=== PATIENT | male | born 1985 | race Caucasian/White ===

== ENCOUNTER → 2017-02-19 | Outpatient (CLI) | payer BC, OTHER ==
[~2017-02-19] MED LIST: ACHD5005 PO; AMOX500C2 PO; CYCL10TA9 PO; DOXY100C2 PO; HYDR-3812 PO; HYDR-757 PO; HYDR1TAB71 PO; IBP800T PO; IBUP-15 PO; NAPR-243 PO; NICOTINE PATCH1 EAC3 TD; ONDAN4ODT SL; PRD20T PO; SULF1TAB38 PO; TRAM50TA2 PO
--- NOTE | 2017-02-19 11:35 | Diagnostic Imaging Report ---
PROCEDURE: MRI left joint lower extremity without contrast. TECHNIQUE: Multiplanar, multisequence non contrast-enhanced MRI of the left lower extremity was accomplished. INDICATION: Left knee pain popping and swelling. Pain is mostly lateral to the patella. FINDINGS: The anterior cruciate and posterior cruciate ligaments are intact. Medial collateral ligaments intact. The biceps femoris, fibular collateral and iliotibial band are intact. Both the medial and lateral meniscus are normal in signal intensity morphology. Quadriceps tendons and patellar tendons are intact. There is a very minimal knee joint effusion. The articular cartilage is well maintained in all three knee joint compartments. There are no areas of underlying marrow edema. There are no focal soft tissue abnormalities. IMPRESSION: No significant internal derangement of the the knee. There may be very minimal knee joint effusion. Dictated by: Dictated on workstation # [id number]
== END ==
LOC: RAD 10:18
PROVIDERS: ATTEND Nurse Practitioner Community Health
DX: M25.562 Pain in left knee (principal); R22.42 Localized swelling, mass and lump, left lower limb
CPT/HCPCS: 73721

== ENCOUNTER 2017-05-14 09:30 | Emergency (ER) | payer OTHER ==
[~2017-05-14] VITALS: Ht 167.6 cm; Wt 97.5 kg
[2017-05-14 11:01] LABS: BASOPHILS # (AUTO) 0.1 10^3/uL (0.0-0.1); BASOPHILS % (AUTO) 1 % (0-10); EOSINOPHILS # (AUTO) 0.3 10^3/uL (0.0-0.3); EOSINOPHILS % (AUTO) 2 % (0-10); LYMPHOCYTES % (AUTO) 25 % (12-44); MEAN CORPUSCULAR HEMOGLOBIN 32 PG (25-34); MEAN CORPUSCULAR HGB CONC 35 G/DL (32-36); MEAN CORPUSCULAR VOLUME 93 FL (80-99); MEAN PLATELET VOLUME 10.6 FL (7.4-10.4); MONOCYTES # (AUTO) 1.9 X 10^3 (0.0-1.0); MONOCYTES % (AUTO) 10 % (0-12); NEUTROPHILS # (AUTO) 12.5 X 10^3 (1.8-7.8); NEUTROPHILS % (AUTO) 63 % (42-75); PLATELET COUNT 335 10^3/uL (130-400); RED BLOOD COUNT 4.38 10^6/uL (4.35-5.85); RED CELL DISTRIBUTION WIDTH 14.3 % (10.0-14.5); WHITE BLOOD COUNT 19.8 10^3/uL (4.3-11.0)
[2017-05-14 11:15] LABS: ALANINE AMINOTRANSFERASE 30 U/L (0-55); ALBUMIN 3.8 GM/DL (3.2-4.5); ANION GAP 11 MMOL/L (5-14); ASPARTATE AMINO TRANSFERASE 12 U/L (5-34); BILIRUBIN,TOTAL 0.2 MG/DL (0.1-1.0); BLOOD UREA NITROGEN 21 MG/DL (7-18); BUN/CREATININE RATIO 24; CALCIUM 9.2 MG/DL (8.5-10.1); CARBON DIOXIDE 23 MMOL/L (21-32); CHLORIDE 108 MMOL/L (98-107); CREATININE SERUM 0.89 MG/DL (0.60-1.30); GFR ESTIMATED > 60; GLUCOSE 84 MG/DL (70-105); LIPASE 61 U/L (8-78); POTASSIUM 4.2 MMOL/L (3.6-5.0); SODIUM 142 MMOL/L (135-145); TOTAL PROTEIN 6.4 GM/DL (6.4-8.2)
[2017-05-14 11:16] LABS: BILIRUBIN,URINE NEGATIVE (NEGATIVE); KETONES,URINE NEGATIVE (NEGATIVE); LEUKOCYTE ESTERASE ,URINE NEGATIVE (NEGATIVE); NITRITE,URINE NEGATIVE (NEGATIVE); PH,URINE 5 (5-9); PROTEIN,URINE NEGATIVE (NEGATIVE); UROBILINOGEN,URINE NORMAL (NORMAL)
[2017-05-14] MEDS ORDERED: KETOROLAC 30 MG/ML VIAL IVP ONE (11:30)
[2017-05-14 11:41] LABS: SQUAMOUS EPITHELIAL CELL,UR RARE /HPF
--- NOTE | 2017-05-14 11:51 | ED Abdominal Pain ---
General Chief Complaint: Chest Wall/Rib Pain Stated Complaint: RIGHT RIB PAIN Nursing Triage Note: PT CO OF R RIB PAIN FOR APPROX 1 MONTH. UNKNOWN CAUSE Sepsis Screen: No Definite Risk Source of Information: Patient Exam Limitations: No Limitations History of Present Illness Time Seen By Provider: 10:05 Initial Comments This 31-year-old young man presents to the emergency room with complaints of pain under the right costal margin. It has been present intermittently for months. It initially was present about 2 days per week but has become more frequent since then. He occasionally alternates between diarrhea and constipation. Pain tends to be more prevalent in the morning. He sometimes has pain with deep breathing and movement. He has nausea without vomiting. He believes he has been febrile at home but denies any measured temperatures over 100. He previously was taking hydrocodone for chronic musculoskeletal pain but has been off of it for about a month. He last ate tater tots and had a soda around 07:30. He denies any drug or alcohol use. Allergies and Home Medications Allergies Coded Allergies: No Known Drug Allergies (Unverified , 04/14/10) Home Medications Doxycycline Hyclate 100 Mg Tablet.dr, 100 MG PO BID, #60 Prescribed by: PALAK LOPEZ on 05/14/17 1430 Hydrocodone/Acetaminophen 1 Each Tablet, 1 EACH PO Q6H PRN for PAIN, #15 Prescribed by: PALAK LOPEZ on 05/14/17 1431 Review of Systems Constitutional: see HPI EENTM: No Symptoms Reported Respiratory: No Symptoms Reported Cardiovascular: No Symptoms Reported Gastrointestinal: See HPI Genitourinary: No Symptoms Reported Musculoskeletal: no symptoms reported Skin: no symptoms reported Psychiatric/Neurological: No Symptoms Reported Endocrine: No Symptoms Reported Past Jbwsjnv-Svbbmm-Riwqhg Hx Patient Social History Alcohol Use: Denies Use Recreational Drug Use: No Smoking Status: Never a Smoker Recent Foreign Travel: No Contact w/Someone Who Travel: No Recent Infectious Disease Expo: No Recent Hopitalizations: No (concussion when 14 y/o) Physical Abuse: No Sexual Abuse: No Immunizations Up To Date Tetanus Booster (TDap): More than 5yrs Date of Influenza Vaccine: Mar 24, 2014 Surgeries History of Surgeries: Yes (SHOULDER SCOPE, LABRAL TEAR ROTATOR CUFF) Surgeries: Orthopedic Respiratory History of Respiratory Disorde: No Cardiovascular History of Cardiac Disorders: No Neurological History of Neurological Disord: Yes (PARESTHESIAS TO HANDS AND FEET) Neurological Disorders: Concussion Reproductive System Hx Reproductive Disorders: No Gastrointestinal History of Gastrointestinal Di: Yes Gastrointestinal Disorders: Gastroesophageal Reflux Musculoskeletal History of Musculoskeletal Dis: Yes (RIGHT SHOULDER PROBLEMS--SURGERY 08/27/14- DR. MICHAEL) Endocrine History of Endocrine Disorders: No Cancer History of Cancer: No Psychosocial History of Psychiatric Problem: No Suicide Risk Score: 0 Integumentary History of Skin or Integumenta: No Blood Transfusions History of Blood Disorders: No Adverse Reaction to a Blood Tr: No Family Medical History Significant Family History: No Pertinent Family Hx Physical Exam Vital Signs VS - Last 72 Hours, by Label 05/14/17 05/14/17 09:49 14:49 Temp 97.2 Pulse 92 92 Resp 18 18 B/P (MAP) 141/110 Pulse Ox 97 97 Capillary Refill : Less Than 3 Seconds General Appearance: WD/WN, no apparent distress HEENT: PERRL/EOMI, normal ENT inspection Neck: normal inspection Respiratory: lungs clear, normal breath sounds, no respiratory distress, no accessory muscle use Cardiovascular: regular rate, rhythm, no edema, no murmur Gastrointestinal: normal bowel sounds, soft, tenderness (right upper quadrant and epigastrium) Extremities: normal inspection, no pedal edema Neurologic/Psychiatric: extension supervisor II-XII nml as tested, no motor/sensory deficits, alert, normal mood/affect, oriented x 3 Skin: normal color, warm/dry Progress/Results/Core Measures Results/Orders Lab Results Laboratory Tests Test 05/14/17 10:46 05/14/17 11:00 Range/Units White Blood Count 19.8 H 4.3-11.0 10^3/uL Red Blood Count 4.38 4.35-5.85 10^6/uL Hemoglobin 14.1 13.3-17.7 G/DL Hematocrit 41 40-54 % Mean Corpuscular Volume 93 80-99 FL Mean Corpuscular Hemoglobin 32 25-34 PG Mean Corpuscular Hemoglobin Concent 35 32-36 G/DL Red Cell Distribution Width 14.3 10.0-14.5 % Platelet Count 335 130-400 10^3/uL Mean Platelet Volume 10.6 H 7.4-10.4 FL Neutrophils (%) (Auto) 63 42-75 % Lymphocytes (%) (Auto) 25 12-44 % Monocytes (%) (Auto) 10 0-12 % Eosinophils (%) (Auto) 2 0-10 % Basophils (%) (Auto) 1 0-10 % Neutrophils # (Auto) 12.5 H 1.8-7.8 X 10^3 Lymphocytes # (Auto) 5.0 H 1.0-4.0 X 10^3 Monocytes # (Auto) 1.9 H 0.0-1.0 X 10^3 Eosinophils # (Auto) 0.3 0.0-0.3 10^3/uL Basophils # (Auto) 0.1 0.0-0.1 10^3/uL Neutrophils % (Manual) 57 % Lymphocytes % (Manual) 33 % Monocytes % (Manual) 6 % Eosinophils % (Manual) 2 % Basophils % (Manual) 0 % Band Neutrophils 1 % Reactive Lymphocytes 1 % Sodium Level 142 135-145 MMOL/L Potassium Level 4.2 3.6-5.0 MMOL/L Chloride Level 108 H 98-107 MMOL/L Carbon Dioxide Level 23 21-32 MMOL/L Anion Gap 11 5-14 MMOL/L Blood Urea Nitrogen 21 H 7-18 MG/DL Creatinine 0.89 0.60-1.30 MG/DL Estimat Glomerular Filtration Rate > 60 BUN/Creatinine Ratio 24 Glucose Level 84 70-105 MG/DL Calcium Level 9.2 8.5-10.1 MG/DL Total Bilirubin 0.2 0.1-1.0 MG/DL Aspartate Amino Transf (AST/SGOT) 12 5-34 U/L Alanine Aminotransferase (ALT/SGPT) 30 0-55 U/L Alkaline Phosphatase 43 40-136 U/L Total Protein 6.4 6.4-8.2 GM/DL Albumin 3.8 3.2-4.5 GM/DL Lipase 61 8-78 U/L Urine Color YELLOW Urine Clarity CLEAR Urine pH 5 5-9 Urine Specific [place] 1.015 L 1.016-1.022 Urine Protein NEGATIVE NEGATIVE Urine Glucose (UA) NEGATIVE NEGATIVE Urine Ketones NEGATIVE NEGATIVE Urine Nitrite NEGATIVE NEGATIVE Urine Bilirubin NEGATIVE NEGATIVE Urine Urobilinogen NORMAL NORMAL MG/DL Urine Leukocyte Esterase NEGATIVE NEGATIVE Urine RBC (Auto) NEGATIVE NEGATIVE Urine RBC NONE /HPF Urine WBC NONE /HPF Urine Squamous Epithelial Cells RARE /HPF Urine Crystals NONE /LPF Urine Bacteria NEGATIVE /HPF Urine Casts NONE /LPF Urine Mucus NEGATIVE /LPF Urine Culture Indicated NO My Orders Orders - APLAK JOSEPH MD Saline Lock/Iv-Start (05/14/17 10:14) Cbc With Automated Diff (05/14/17 10:14) Comprehensive Metabolic Panel (05/14/17 10:14) Lipase (05/14/17 10:14) Ua Culture If Indicated (05/14/17 10:14) Manual Differential (05/14/17 10:46) Us Gallbladder [id number] (05/14/17 11:04) Ketorolac Injection (Toradol Injection) (05/14/17 11:30) Ct Abdomen/Pelvis W (05/14/17 11:44) Iohexol Injection (Omnipaque 350 Mg/Ml 1 (05/14/17 12:30) Ns (Ivpb) (Sodium Chloride 0.9% Ivpb Bag (05/14/17 12:30) Fentanyl Injection (Sublimaze Injection (05/14/17 12:30) Lidocaine 2% Viscous 15 Ml (Xylocaine Vi (05/14/17 13:45) Antacid Suspension (Mylanta Suspension (05/14/17 13:45) Iv Push Health Information Assistant Ed (05/14/17 ) Medications Given in ED Vital Signs/I&O Vital Sign - Last 12Hours 05/14/17 05/14/17 09:49 14:49 Temp 97.2 Pulse 92 92 Resp 18 18 B/P (MAP) 141/110 Pulse Ox 97 97 Blood Pressure Mean: 120 Progress Note #1: Time: 11:46 Progress Note Patient was found to have a leukocytosis. Gallbladder ultrasound was performed and found to be negative. Because of the leukocytosis and persistent significant abdominal pain, CT with contrast was ordered to follow. Patient was wanting something for pain but did not want narcotics because he was on a pain management contract with [facility]. Toradol was given is an alternative. Progress Note #2: Progress Note CT scan was also negative for acute pathology. Toradol did not give satisfactory pain relief. He was additionally given fentanyl. Ultimately no source of pain or infection was identified. Patient did point out a fine maculopapular a rash that primarily involves his face. He states this rash has been intermittently present since having [place] spotted fever for which she has been placed on multiple rounds of antibiotics. He states the diagnosis was confirmed by labs previously. We discussed options. Patient was advised to follow-up with his primary care provider and seek further evaluation for his abdominal pain which might include endoscopy. I also advised that he take a prolonged course of antibiotics, potentially up to 6 weeks an effort to try to definitively treat [place] spotted fever. He was given a 30 day prescription on discharge from the ER. Patient was concerned about receiving a prescription for opioid pain medications as he is on a contract with [facility]. I advised him to contact [facility] staff before actually filling the hydrocodone prescription. Diagnostic Imaging Diagonstic Imaging: Ultrasound Plain Films/CT/US/NM/MRI: abdomen Comments NAME: [facility] REC#: [id number] PT STATUS: DEP ER : 1985 PHYSICIAN: PALAK JOSEPH MD ADMIT DATE: 05/14/17/ER Signed Date of Exam: 05/14/17 US GALLBLADDER [id number] PROCEDURE: US Gallbladder. TECHNIQUE: Multiple real-time grayscale images were obtained over the right upper quadrant in various projections. INDICATION: Right upper quadrant pain. FINDINGS: The pancreas is largely obscured by bowel gas. The liver is fairly homogeneous with no focal lesion. Hepatopetal flow in the portal vein is seen. There is increased echogenicity in the liver which may relate to fatty infiltration or hepatitis. The liver is also borderline enlarged measuring 19.4 CM in craniocaudal dimension. The gallbladder demonstrates no stones or wall thickening. No pericholecystic fluid. Sonographic Jacobs sinus is reportedly negative. The CBD is 3 mm in caliber. The right kidney is 11.4 CM in length. No hydronephrosis or focal lesion. No fluid collection in the upright abdomen. IMPRESSION: Borderline hepatomegaly. The liver is also increased in echogenicity which may relate to fatty infiltration or hepatitis. Dictated by: Dictated on workstation # [id number] Dict: 05/14/17 1152 Trans: 05/14/17 1534 Interpreted by: MARYBETH PLAZA MD Electronically signed by: MARYBETH PLAZA MD 05/14/17 1534 Diagonstic Imaging: CT Plain Films/CT/US/NM/MRI: abdomen, pelvis Comments CT abdomen and pelvis viewed by me and report reviewed. See report below: NAME: RO[facility] NEAL [facility] REC#: [id number] PT STATUS: DEP ER : 1985 PHYSICIAN: PALAK JOSEPH MD ADMIT DATE: 05/14/17/ER Signed Date of Exam: 05/14/17 CT ABDOMEN/PELVIS W PROCEDURE: CT abdomen and pelvis with contrast. TECHNIQUE: Multiple contiguous axial images were obtained through the abdomen and pelvis after administration of intravenous contrast. INDICATION: Nausea. Diarrhea and constipation. Right subcostal pain. 100 mL of Omnipaque 350 is administered intravenously. FINDINGS: The lung bases appear clear. The liver, the gallbladder, the spleen, the adrenal glands and the pancreas appear unremarkable. The kidneys have symmetric enhancement and contrast excretion. The urinary bladder appears unremarkable. The appendix appears normal. Moderate amounts of fecal material is seen in the colon. No bowel obstruction. No significant free fluid or fluid collection in the abdomen or pelvis. The abdominal aorta is normal in caliber. No para-aortic significantly enlarged lymph node is seen. There is suggestion of a tiny fat-containing umbilical hernia. The osseous structures demonstrate degenerative changes at the SI joints. IMPRESSION: Tiny fat-containing umbilical hernia. Mild degenerative changes of the SI joints. Dictated by: Dictated on workstation # [id number] Dict: 05/14/17 1253 Trans: 05/14/17 1533 Interpreted by: MARYBETH PLAZA MD Electronically signed by: MARYBETH PLAZA MD 05/14/17 1533 Departure Impression Impression: Primary Impression: Right upper quadrant pain Additional Impressions: Fatty liver disease, nonalcoholic Rash Leukocytosis Qualified Codes: D72.829 - Elevated white blood cell count, unspecified History of [place] spotted fever Disposition: 01 HOME, SELF-CARE Condition: Improved Departure-Patient Inst. Decision time for Depature: 14:27 Referrals: [facility] (PCP) Primary Care Physician JANES HARRINGTON (Family) Primary Care Physician Patient Instructions: Acute Abdomen (Belly Pain), Nonalcoholic Fatty Liver Disease (DC) Add. Discharge Instructions: Please follow-up with your primary care provider soon as possible. Since you are on a pain management contract, contact your provider's staff before filling your prescription. Discuss further evaluation of your pain with your primary care provider. This might include colonoscopy and EGD. Continue doxycycline as prescribed until instructed otherwise. I suggest a course of up to 6 weeks of antibiotic therapy. Consider seeking referral to an infectious disease specialist. Avoid alcohol or excessive doses of acetaminophen (Tylenol). Please be advised the hydrocodone prescribed has acetaminophen in it. Do not add extra Tylenol to this. Return to the ER if symptoms worsen. Take over-the- counter Pepcid (famotidine) or omeprazole daily until otherwise instructed. All discharge instructions reviewed with patient and/or family. Voiced understanding. Scripts Hydrocodone/Acetaminophen (Hydrocodon -Acetaminophen 5-325) 1 Each Tablet 1 EACH PO Q6H Y for PAIN, #15 TAB Prov: PALAK JOSEPH MD 05/14/17 Doxycycline Hyclate (Doxycycline Hyclate) 100 Mg Tablet.dr 100 MG PO BID, #60 TAB Prov: PALAK JOSEPH MD 05/14/17 Copy Copies To 1: CHARANJIT SAHNI JOSHUA T MD May 14, 2017 11:51
[2017-05-14 11:55] LABS: BAND NEUTROPHILS 1 %; BASOPHILS % (MANUAL) 0 %; EOSINOPHILS % (MANUAL) 2 %; LYMPHOCYTES % (MANUAL) 33 %; NEUTROPHILS % (MANUAL) 57 %; REACTIVE LYMPHOCYTES 1 %
--- NOTE | 2017-05-14 12:00 | Diagnostic Imaging Report ---
PROCEDURE: US Gallbladder. TECHNIQUE: Multiple real-time grayscale images were obtained over the right upper quadrant in various projections. INDICATION: Right upper quadrant pain. FINDINGS: The pancreas is largely obscured by bowel gas. The liver is fairly homogeneous with no focal lesion. Hepatopetal flow in the portal vein is seen. There is increased echogenicity in the liver which may relate to fatty infiltration or hepatitis. The liver is also borderline enlarged measuring 19.4 CM in craniocaudal dimension. The gallbladder demonstrates no stones or wall thickening. No pericholecystic fluid. Sonographic Jacobs sinus is reportedly negative. The CBD is 3 mm in caliber. The right kidney is 11.4 CM in length. No hydronephrosis or focal lesion. No fluid collection in the upright abdomen. IMPRESSION: Borderline hepatomegaly. The liver is also increased in echogenicity which may relate to fatty infiltration or hepatitis. Dictated by: Dictated on workstation # [id number]
[2017-05-14] MEDS ORDERED: fentaNYL INJECTION 100 MCG/2 ML AMP IVP ONE (12:30)
[2017-05-14] MEDS ORDERED: NS 100 ML (IVPB) BAG IV ONE (12:30)
[2017-05-14] MEDS ORDERED: IOHEXOL 350 MG/ML 100 ML (OMNIPAQUE 350) VIAL IV ONE (12:30)
--- NOTE | 2017-05-14 13:07 | Diagnostic Imaging Report ---
PROCEDURE: CT abdomen and pelvis with contrast. TECHNIQUE: Multiple contiguous axial images were obtained through the abdomen and pelvis after administration of intravenous contrast. INDICATION: Nausea. Diarrhea and constipation. Right subcostal pain. 100 mL of Omnipaque 350 is administered intravenously. FINDINGS: The lung bases appear clear. The liver, the gallbladder, the spleen, the adrenal glands and the pancreas appear unremarkable. The kidneys have symmetric enhancement and contrast excretion. The urinary bladder appears unremarkable. The appendix appears normal. Moderate amounts of fecal material is seen in the colon. No bowel obstruction. No significant free fluid or fluid collection in the abdomen or pelvis. The abdominal aorta is normal in caliber. No para-aortic significantly enlarged lymph node is seen. There is suggestion of a tiny fat-containing umbilical hernia. The osseous structures demonstrate degenerative changes at the SI joints. IMPRESSION: Tiny fat-containing umbilical hernia. Mild degenerative changes of the SI joints. Dictated by: Dictated on workstation # [id number]
[2017-05-14] MEDS ORDERED: ANTACID SUSP 30 ML UDC (MYLANTA) PO ONE (13:45)
[2017-05-14] MEDS ORDERED: LIDOCAINE 2% VISCOUS 15 ML UDC PO ONE (13:45)
[2017-05-14] MEDS ORDERED: DOXY-227 PO (14:30)
[2017-05-14] MEDS ORDERED: HYDR-3812 PO (14:31)
[2017-05-14 14:49] VITALS: BP 140/92
== END 2017-05-14 14:48 | disposition home or self-care (01) ==
LOC: EDUNIT# 09:30 → ER 09:33
DX: K76.0 Fatty (change of) liver, not elsewhere classified (principal); R21 Rash and other nonspecific skin eruption; D72.829 Elevated white blood cell count, unspecified; K21.9 Gastro-esophageal reflux disease without esophagitis; Z86.19 Personal history of other infectious and parasitic diseases
CPT/HCPCS: 36415; 74177; 76705; 80053; 81000; 83690; 85007; 85027; 96374; 96375

== ENCOUNTER 2018-02-09 09:56 | Emergency (ER) | payer OTHER ==
[~2018-02-09] VITALS: Ht 167.6 cm; Wt 98.4 kg
[~2018-02-09 09:56] MED LIST changes: +DOXY-227 PO; -HYDR-3812 PO
--- NOTE | 2018-02-09 11:02 | ED GI ---
General Chief Complaint: Rect Problems Stated Complaint: BLOOD IN STOOL Nursing Triage Note: PT AMB TO ROOM #6 W/O DIFFICULTY. A&OX4. CO BLOOD IN STOOL X1. PT REPORTS HE HAS BEEN CONSTIPATED FOR PAST 6 DAYS WITH FIRST EPISODE OF RELIEF LAST NOC REPORTED TO BE "ROCK HARD" WITH NO BLOOD PRESENT. PT REPORTS HE WOKE UP THIS AM AND HAD 1 EPISODE OF LOOSE BM NOTED TO HAVE "DARK RED BLOOD IN IT." PT REPORTS HE HAS HAD SIMILAR BOWEL ISSUES IN THE PAST. Sepsis Screen: No Definite Risk Source of Information: Patient Exam Limitations: No Limitations History of Present Illness Date Seen by Provider: Feb 09, 2018 Time Seen by Provider: 10:54 Initial Comments This 32-year-old white male presents with a complaint rectal pain after passing a very hard stool. The patient had been constipated for the last 6 days and last night was able to pass a large rock hard stool. The patient had a loose bowel movement this morning. He thought had possible blood in it. The patient has had the history of constipation the past. The rest of the patient's past medical history is unremarkable. He is only complaining of rectal pain at this time. Allergies and Home Medications Allergies Coded Allergies: No Known Drug Allergies (Unverified , 04/14/10) Home Medications Doxycycline Hyclate 100 Mg Tablet.dr, 100 MG PO BID Prescribed by: PALAK LOPEZ on 05/14/17 1430 Hydrocodone Bit/Acetaminophen 1 Each Tablet, 1 EACH PO Q6H PRN for PAIN Prescribed by: PALAK LOPEZ on 05/14/17 1431 Patient Home Medication List Home Medication List Reviewed: Yes Review of Systems Constitutional: No chills EENTM: No Blurred Vision Respiratory: Denies Cough Gastrointestinal: Denies Abdomen Distended, Denies Abdominal Pain, Denies Diarrhea; Rectal Bleeding, Other (rectal pain) Genitourinary: Denies Burning Musculoskeletal: No back pain Skin: No rash Psychiatric/Neurological: No Symptoms Reported Endocrine: No Symptoms Reported Hematologic/Lymphatic: No Symptoms Reported Past Ivetgth-Xmhrdk-Gqpqtn Hx Past Med/Social Hx: Reviewed Nursing Past Med/Soc Hx Patient Social History Recent Foreign Travel: No Contact w/Someone Who Travel: No Recent Infectious Disease Expo: No Recent Hopitalizations: No (concussion when 14 y/o) Immunizations Up To Date Tetanus Booster (TDap): More than 5yrs Date of Influenza Vaccine: Mar 24, 2014 Past Medical History Surgeries: Yes (SHOULDER SCOPE, LABRAL TEAR ROTATOR CUFF) Orthopedic Respiratory: No Cardiac: No Neurological: Yes (PARESTHESIAS TO HANDS AND FEET) Concussion Reproductive Disorders: No Gastrointestinal: Yes Gastroesophageal Reflux Musculoskeletal: Yes (RIGHT SHOULDER PROBLEMS--SURGERY 08/27/14-DR. MICHAEL) Endocrine: No Cancer: No Psychosocial: No Integumentary: No Blood Disorders: No Adverse Reaction/Blood Tranf: No Family Medical History No Pertinent Family Hx Physical Exam Vital Signs Capillary Refill : Less Than 3 Seconds Height/Weight/BMI Height: 5'6.00" Weight: 217lbs. 10.0oz. 98.394974nf; BMI Method:Stated General Appearance: WD/WN, no apparent distress HEENT: normal ENT inspection Neck: full range of motion Respiratory: normal breath sounds Cardiovascular: regular rate, rhythm Gastrointestinal: normal bowel sounds, non tender, soft Rectal: other (on rectal exam there was tenderness to digital exam. I did not find a hemorrhoid or fissure. The stool was guaiac-negative.) Extremities: normal range of motion, normal inspection Back: normal inspection, no CVA tenderness Neurologic/Psychiatric: no motor/sensory deficits, alert Skin: normal color, warm/dry Progress/Results/Core Measures Results/Orders Blood Pressure Mean: 106 Progress Progress Note : Time: 10:57 Progress Note The patient's exam demonstrated no evidence of active rectal bleeding. No fissure or hemorrhoid was identified. I reassured the patient. I asked that he avoid gmxo-wiy-zlofsfe hydrocortisone cream liberally to the rectal area for the next several days. I recommended that he initiate daily use of Metamucil. I think follow-up with his caregiver on Saturday if he was not improved. He was invited to return to emergency department if any further problems or questions. Departure Impression Primary Impression: Rectal bleed Disposition: HOME, SELF-CARE Condition: Unchanged Departure-Patient Inst. Decision time for Depature: 11:01 Referrals: [facility] (PCP) Primary Care Physician JANES HARRINGTON (Family) Primary Care Physician Patient Instructions: Anal Fissure (DC) Add. Discharge Instructions: Hydrocortisone cream liberally to the rectum 3 times a day for the next 3-5 days. Initiate Metamucil daily for soft stools. Return if any problems or questions. Close follow-up with your doctor if not better. All discharge instructions reviewed with patient and/or family. Voiced understanding. OMARI MART MD Feb 09, 2018 11:02
[2018-02-09 11:41] VITALS: BP 132/94
== END 2018-02-09 11:51 | disposition home or self-care (01) ==
LOC: EDUNIT# 09:56 → ER 09:57
DX: K62.5 Hemorrhage of anus and rectum (principal); K21.9 Gastro-esophageal reflux disease without esophagitis; Z87.19 Personal history of other diseases of the digestive system
CPT/HCPCS: 99282

== ENCOUNTER 2023-04-15 14:13 | Emergency (ER) | payer OTHER ==
[~2023-04-15] VITALS: Ht 167.7 cm; Wt 101.2 kg
[~2023-04-15 14:13] MED LIST changes: +CYCL10TA25 PO
--- NOTE | 2023-04-15 14:38 | ED GI ---
General Chief Complaint: General Problems/Pain Stated Complaint: LEFT SIDE ABD KNOT/PAIN Nursing Triage Note: PT AMB TO RM 3 W C/O "KNOT" TO LLQ SX 04/08/23 PAIN RADIATES DOWN TO LEFT GROIN AND TESTICLE, CONCERNED FOR HERNIA D/T LIFTING AT WORK. PT WAS EVALUATED AT [facility] ON SATURDAY, SCHEDULED FOR ULTRASOUND TODAY BUT MISSED APPT. PT TO ED SEEKING ULTRASOUND FOR POSS HERNIA. PT A&OX4. History of Present Illness Date Seen by Provider: Apr 15, 2023 Time Seen by Provider: 14:36 Initial Comments 37-year-old male presents with a "knot" in the left lower quadrant of his abdomen/left groin. He reports that the symptoms started on 03/29/2023. That he has some pain that radiates down to his groin and testicle. He reports he does a lot of lifting at work and is concerned for hernia. He was seen 3 days ago at [facility] and scheduled for an ultrasound today but reports that he missed the appointment for the ultrasound and presents to the ER hoping to get an ultrasound for the hernia Allergies and Home Medications Allergies Coded Allergies: No Known Drug Allergies (Unverified , 04/14/10) Patient Home Medication List Home Medication List Reviewed: Yes Doxycycline Hyclate (Doxycycline Hyclate) 100 Mg Tablet., 100 MG PO BID Prescribed by: PALAK LOPEZ on 05/14/17 1430 Hydrocodone Bit/Acetaminophen (Lortab 5 Mg Tablet) 1 Each Tablet, 1 EACH PO Q6H PRN for PAIN Prescribed by: PALAK LOPEZ on 05/14/17 1431 Review of Systems Review of Systems Constitutional: see HPI Respiratory: No Symptoms Reported Cardiovascular: No Symptoms Reported Gastrointestinal: See HPI Genitourinary: See HPI Musculoskeletal: no symptoms reported Skin: no symptoms reported Psychiatric/Neurological: No Symptoms Reported Past Dhhwrgx-Hdnhfg-Fadqqo Hx Patient Social History Tobacco Use?: Yes Tobacco type used: Cigars Smoking Status: Current Everyday Smoker Use of E-Cig and/or Vaping dev: No Substance use?: No Alcohol Use?: Yes Alcohol type: Beer Alcohol Frequency: Daily Immunizations Up To Date Tetanus Booster (TDap): More than 5yrs Past Medical History Surgeries: Yes (SHOULDER SCOPE, LABRAL TEAR ROTATOR CUFF) Orthopedic Respiratory: No Cardiac: No Neurological: Yes (PARESTHESIAS TO HANDS AND FEET) Concussion Reproductive Disorders: No Gastrointestinal: Yes Gastroesophageal Reflux Musculoskeletal: Yes (RIGHT SHOULDER PROBLEMS--SURGERY 08/27/14-DR. MICHAEL) Endocrine: No Cancer: No Psychosocial: No Integumentary: No Blood Disorders: No Adverse Reaction/Blood Tranf: No Family Medical History No Pertinent Family Hx Physical Exam Vital Signs Vital Signs - First Documented 04/15/23 14:21 Temp 36.9 Pulse 98 Resp 18 B/P (MAP) 136/81 (99) Pulse Ox 96 O2 Delivery Room Air Capillary Refill : Less Than 3 Seconds Height/Weight/BMI Height: 5'6.00" Weight: 217lbs. 10.0oz. 98.017299ev; 35.00 BMI Method:Stated General Appearance: WD/WN, no apparent distress Cardiovascular: normal peripheral pulses, regular rate, rhythm Gastrointestinal: soft, tenderness (Left lower), other (Questionable hernia left lower quadrant/left groin) Extremities: normal range of motion, non-tender Neurologic/Psychiatric: alert, normal mood/affect, oriented x 3 Skin: normal color, warm/dry Progress/Results/Core Measures Results/Orders My Orders Orders - SUAREZEDUARDA DO Us Abdomen Complete [id number] (04/15/23 14:34) Us Pelvic Non-Ob [id number] (04/15/23 15:00) Vital Signs/I&O 04/15/23 14:21 Temp 36.9 Pulse 98 Resp 18 B/P (MAP) 136/81 (99) Pulse Ox 96 O2 Delivery Room Air Blood Pressure Mean: 99 Progress Progress Note : Progress Note Patient's abdominal mass/swelling was evaluated with ultrasound. There is no hernia noted on ultrasound. It is just under the skin is superficial. It may be early abscess formation versus a cyst. Since that just recently appeared. I will start him on Bactrim for possible early abscess formation. Patient had no obvious erythema or warmth on physical exam. He is stable and discharged Departure Impression Primary Impression: Mass of left inguinal region Additional Impression: Abscess of left groin Disposition: HOME, SELF-CARE Condition: Stable Departure-Patient Inst. Referrals: [facility], [facility] (PCP/Family) Primary Care Physician Patient Instructions: Boil, Adult ED Add. Discharge Instructions: Please follow-up with your primary care provider Saturday or Hannah of next week for repeat evaluation. All discharge instructions reviewed with patient and/or family. Voiced understan maria antonia. Scripts Sulfamethoxazole/Trimethoprim (Bactrim Ds Tablet) 1 Each Tablet 1 EACH PO BID, #20 TAB Prov: EDUARDA SUAREZ DO 04/15/23 EDUARDA SUAREZ DO Apr 15, 2023 14:37
[2023-04-15] MEDS ORDERED: SULF1TAB38 PO (15:21)
[2023-04-15 15:24] VITALS: BP 129/78
--- NOTE | 2023-04-15 15:45 | Diagnostic Imaging Report ---
TECHNIQUE: Focused ultrasound of the soft tissues of the left groin were obtained. COMPARISON: 05/14/2017. INDICATION: Painful mass in the left lower quadrant. FINDINGS: Focus of decreased echogenicity is seen within the superficial soft tissues of the left lower quadrant superior to the left hip measuring 1.4 x 0.6 x 0.5 cm. No internal color Doppler flow is seen. No evidence of hernia. IMPRESSION: 1. Findings most suggestive of a small focus of phlegmon within the superficial soft tissues of the left lower quadrant just superior to the left hip. No well-formed abscess or mass. No evidence of hernia. Dictated by: Dictated on workstation # [id number]
== END 2023-04-15 15:24 | disposition home or self-care (01) ==
LOC: EDUNIT# 14:13 → ER 14:17
DX: L02.211 Cutaneous abscess of abdominal wall (principal); F17.210 Nicotine dependence, cigarettes, uncomplicated
CPT/HCPCS: 76857